=== PATIENT | female | born 1955 | race Caucasian/White ===

== ENCOUNTER 2017-06-27 13:25 | Observation (INO) | payer MEDICAID ==
[~2017-06-27] VITALS: Ht 152.4 cm; Wt 135.0 kg
[~2017-06-27 13:25] MED LIST: ADULT ASPIRIN81 MG PO; ALENDRONATE SOD70 MG PO; ASPIRIN EC81 MG PO; BAYER ASPIRIN325 M1 PO; BENEFIBER DRIN PO; BISACODYL5 MG PO; BISCOLAX10 MG/SUPP PO; CARVEDILOL3.125 MG PO; DOK100 MG PO; ENDOCET PO; FISH OIL 11000 MG/CA PO; GLUCOPHAGE XR500 MG PO; MIRALAX17 GM PO; MULTIVITAMINS1 EAC7 PO; NAPROXEN500 MG PO; NIACIN50 MG PO; OYSTER SHELL C1 EA16 PO; SULFAMETHOXAZO1 EAC2 PO; TYLENOL W/CODEI1 TAB PO; ULTRAM50 MG PO; ZOCOR80 M1 PO; [UNRECOGNIZED DRUG - OTHER] PO
[2017-06-27] MEDS ORDERED: OMEPRAZOLE40 M2 PO (14:01)
[2017-06-27] MEDS ORDERED: LASIX20 M1 PO (14:01)
[2017-06-27] MEDS ORDERED: TYLENOL WITH C1 EACH PO (14:02)
[2017-06-27] MEDS ORDERED: COZAAR25 M1 PO (14:02)
[2017-06-27] MEDS ORDERED: CHLORTHALIDONE25 M1 PO (14:03)
[2017-06-27] MEDS ORDERED: CORTIZONE-1028 G2 TP (14:04)
[2017-06-27] MEDS ORDERED: OPCON-A EYE DRO15 M1 OP (14:04)
[2017-06-27 14:11] LABS: BASO % 0.2 % (0-2); HCT-HEMATOCRIT 40.7 % (34.0-49.0); HGB-HEMOGLOBIN 14.2 gm/dl (12.0-15.5); IMMATURE GRANULOCYTES ABSOLUTE 0.03 tho/cmm (0-0.03); IMMATURE GRANULOCYTES PERCENT 0.3 % (0-0.3); LYMPH % 11.1 % (20-45); LYMPH ABSOLUTE COUNT 1.3 tho/cmm (0.8-4.5); MCH (MEAN CORPUSCULAR HGB) 30.8 pg (28.0-32.0); MCHC MEAN CORPUSCULAR HGB CONC 34.9 % (32.0-36.0); MCV (MEAN CELL VOLUME) 88.3 fl (82.0-96.0); MEAN PLATELET VOLUME 9.7 cmc (9.4-12.4); MONO % 1.8 % (0-12); MONOCYTE ABSOLUTE COUNT 0.2 tho/cmm (0.0-1.2); NEUTROPHILS % 86.6 % (40-80); PLATELET COUNT 260 tho/cmm (150-450); RED BLOOD COUNT 4.61 mil/cmm (4.00-5.20); RED CELL DISTRIBUTION WIDTH 13.5 % (12.4-16.4); WHITE BLOOD COUNT 11.5 tho/cmm (4.0-10.0)
[2017-06-27 14:33] LABS: URINE APPEARANCE HAZY; URINE BILIRUBIN NEGATIVE (NEG); URINE BLOOD MODERATE (NEG); URINE COLOR YELLOW; URINE GLUCOSE (UA) NEGATIVE (NEG); URINE KETONE LARGE (NEG); URINE LEUKOCYTE ESTERASE POSITIVE (NEG); URINE NITRITE NEGATIVE (NEG); URINE PROTEIN MODERATE (NEG); URINE SPECIFIC GRAVITY 1.015 (1.003-1.030)
[2017-06-27 14:35] LABS: ALB/GLOB RATIO 0.8 (0.8-2.0); ALBUMIN 3.7 g/dl (3.5-5.0); ALKALINE PHOSPHATASE 48 U/L (33-138); ALT/SGPT 19 U/L (12-78); ANION GAP 14 mmol/L (0-20); AST/SGOT 53 U/L (10-40); BILIRUBIN,TOTAL 0.7 mg/dl (0-1.5); BLOOD UREA NITROGEN 26 mg/dl (6-24); C-REACTIVE PROTEIN 1.6 mg/dl (0-0.9); CALCIUM 9.6 mg/dl (8.5-10.5); CARBON DIOXIDE-VENOUS 25 mmol/L (22-32); CHLORIDE 109 mmol/l (96-110); CREATININE 1.04 mg/dl (0.50-1.10); GLUCOSE 131 mg/dL (70-110); LIPASE 101 U/L (73-393); POTASSIUM 3.6 mmol/L (3.7-5.1); SODIUM 144 mmol/L (135-145); eGFR VALUE FOR BLACK 66 mL/Min
[2017-06-27 14:40] LABS: URINE OTHER VOLUME 3 ML
[2017-06-27 14:42] LABS: URINE RBC 0 /[HPF] (0-5)
[2017-06-28 05:51] LABS: BASO % 0.2 % (0-2); EOS % 1.1 % (0-7); EOSINOPHIL ABSOLUTE COUNT 0.1 tho/cmm (0.0-0.7); HGB-HEMOGLOBIN 13.8 gm/dl (12.0-15.5); IMMATURE GRANULOCYTES ABSOLUTE 0.02 tho/cmm (0-0.03); IMMATURE GRANULOCYTES PERCENT 0.2 % (0-0.3); LYMPH % 14.5 % (20-45); LYMPH ABSOLUTE COUNT 1.7 tho/cmm (0.8-4.5); MCH (MEAN CORPUSCULAR HGB) 30.6 pg (28.0-32.0); MCHC MEAN CORPUSCULAR HGB CONC 34.5 % (32.0-36.0); MCV (MEAN CELL VOLUME) 88.7 fl (82.0-96.0); MONOCYTE ABSOLUTE COUNT 0.6 tho/cmm (0.0-1.2); NEUTROPHIL ABSOLUTE COUNT 9.1 tho/cmm (1.6-8.0); NEUTROPHIL-AUTOMATED 9.1 tho/cmm (1.6-8.0); PLATELET COUNT 265 tho/cmm (150-450); RED BLOOD COUNT 4.51 mil/cmm (4.00-5.20); RED CELL DISTRIBUTION WIDTH 13.9 % (12.4-16.4); WHITE BLOOD COUNT 11.6 tho/cmm (4.0-10.0)
[2017-06-28 06:00] LABS: ANION GAP 13 mmol/L (0-20); BLOOD UREA NITROGEN 23 mg/dl (6-24); CALCIUM 9.3 mg/dl (8.5-10.5); CARBON DIOXIDE-VENOUS 25 mmol/L (22-32); CHLORIDE 111 mmol/l (96-110); CREATININE 1.03 mg/dl (0.50-1.10); GLUCOSE 123 mg/dL (70-110); POTASSIUM 3.1 mmol/L (3.7-5.1); SODIUM 146 mmol/L (135-145); eGFR VALUE FOR BLACK 67 mL/Min
--- NOTE | 2017-06-28 23:42 | NUR ---
VIRTUAL CARE NOTE: ASSESSMENT DEFERRED. PT. SLEEPING.
[2017-06-29 05:44] LABS: PLATELET COUNT 236 tho/cmm (150-450)
[2017-06-30 06:23] LABS: ALB/GLOB RATIO 0.8 (0.8-2.0); ALBUMIN 3.1 g/dl (3.5-5.0); ALKALINE PHOSPHATASE 37 U/L (33-138); ALT/SGPT 18 U/L (12-78); ANION GAP 7 mmol/L (0-20); AST/SGOT 40 U/L (10-40); BILIRUBIN,TOTAL 0.7 mg/dl (0-1.5); BLOOD UREA NITROGEN 17 mg/dl (6-24); CALCIUM 8.5 mg/dl (8.5-10.5); CARBON DIOXIDE-VENOUS 26 mmol/L (22-32); CHLORIDE 111 mmol/l (96-110); CREATININE 0.93 mg/dl (0.50-1.10); GLUCOSE 97 mg/dL (70-110); POTASSIUM 3.3 mmol/L (3.7-5.1); SODIUM 141 mmol/L (135-145); eGFR VALUE FOR BLACK 75 mL/Min
[2017-06-30] MEDS ORDERED: POTASSIUM CHLO20 ME3 PO (11:24)
== END 2017-06-30 14:05 ==
LOC: EDMED → EDBD 13:34 → EDMED 13:34 → 5WD 17:03 → EMR2 17:03 → 5WD 18:30
PROVIDERS: Emergency Medicine; ADMIT Family Medicine
PROC: 05HF33Z Insertion of Infusion Device into Left Cephalic Vein, Percutaneous Approach (ICD-10-PCS; principal; 2017-06-28)
DX: R11.2 Nausea with vomiting, unspecified (principal); R19.7 Diarrhea, unspecified; E86.0 Dehydration; I10 Essential (primary) hypertension; E66.01 Morbid (severe) obesity due to excess calories; Z68.43 Body mass index [BMI] 50.0-59.9, adult; E87.6 Hypokalemia; Z79.899 Other long term (current) drug therapy; Z88.1 Allergy status to other antibiotic agents; Z86.718 Personal history of other venous thrombosis and embolism
CPT/HCPCS: C1751; J1650; J2405; J7030